=== PATIENT | female | born 1990 | race Caucasian/White ===

== ENCOUNTER 2018-09-20 16:12 | Emergency (ER) | payer OTHER, MEDICAID, SELFPAY ==
--- NOTE | 2018-09-20 16:16 | ED.LOWEXIN ---
HPI - Extremity Injury (Lower) <MARY Chang - Last Filed: 09/20/18 21:56> General Chief Complaint: Extremity Injury, Lower Stated Complaint: right knee pain x1 wk Time Seen by Provider: 09/20/18 16:13 Source: patient Mode of arrival: ambulatory Limitations: no limitations History of Present Illness HPI Narrative: 28-year-old healthy female that is a nonsmoker here for complaint of pain into her right knee. She states that she when out for a walk today and went hiking and got increased pain to her right knee. She states she has had pain to that knee for the past month. She denies any trauma to the knee. She does report increased pain with ambulation. Pain is limited to the right knee. She is able to ambulate. No other concerns or complaints at this time.. Review of Systems <MARY Chang - Last Filed: 09/20/18 21:56> Constitutional Denies chills, Denies fever(s), Denies lethargy and Denies weakness Eyes Denies change in vision, Denies eye discharge, Denies irritation and Denies loss of vision ENT Ears, Nose, Mouth, and Throat: Denies change in voice, Denies neck pain and Denies sore throat Cardiovascular Denies chest pain, Denies irregular heart rhythm, Denies lightheadedness, Denies palpitations, Denies dyspnea, Denies dyspnea on exertion and Denies orthopnea Respiratory Denies cough, Denies dyspnea, Denies dyspnea on exertion and Denies wheezing Gastrointestinal Gastrointestinal: Denies abdominal pain, Denies change in bowel habits, Denies diarrhea, Denies nausea and Denies vomiting Genitourinary Denies hematuria, Denies flank pain, Denies urinary incontinence and Denies urinary urgency Musculoskeletal Denies neck pain Comments: Right knee pain Integumentary/Breasts Denies pruritus, Denies erythema, Denies rash and Denies wounds Neurologic Denies confusion, Denies loss of vision and Denies weakness Psychiatric Denies anxiety, Denies confusion, Denies depression, Denies homicidal ideation and Denies suicidal ideation Endocrine Denies palpitations Hematologic/Lymphatic Denies easy bruising Allergic/Immunologic Denies wheezing Exam <MARY Chang - Last Filed: 09/20/18 21:56> Initial Vital Signs Initial Vital Signs: Vital Signs Temperature 98.0 F 09/20/18 16:17 Pulse Rate 81 09/20/18 16:17 Respiratory Rate 16 09/20/18 16:17 Blood Pressure 115/64 09/20/18 16:17 Pulse Oximetry 100 09/20/18 16:17 Const General: cooperative and well developed Nutritional Appearance: well nourished Orientation: alert, awake, oriented x3 and not confused HENTX Mouth: oral mucosae normal and moist mucous membranes Eyes Conjunctivae: conjunctivae normal Sclera: sclerae normal Pupils: PERRL EOM: EOM intact bilaterally Resp Effort & Inspection: normal respiratory effort, able to speak in complete sentences, no respiratory distress and no use of accessory muscles Auscultation: clear to auscultation bilaterally, no rales, no rhonchi and no wheezes Cardio Rate: regular rate Rhythm: regular rhythm Heart Sounds: no click, no gallops, no murmurs and no rubs Pulses: normal peripheral pulses Skin General: no rashes or lesions noted, No jaundice and No petechiae Neuro General: alert, oriented x3, gait normal and no focal motor deficits Speech: speech normal Extrem Other: Right knee with no swelling no ecchymosis no erythema. Distal sensation is intact. Distal pulses are intact. Distal range of motion is intact. Negative anterior posterior drawer sign. Negative varus valgus stress test. <Sierra Sanchez DO - Last Filed: 09/21/18 18:31> Initial Vital Signs Initial Vital Signs: Vital Signs Temperature 98.0 F 09/20/18 16:17 Pulse Rate 81 09/20/18 16:17 Respiratory Rate 16 09/20/18 16:17 Blood Pressure 115/64 09/20/18 16:17 Pulse Oximetry 100 09/20/18 16:17 Course <MARY Chang - Last Filed: 09/20/18 21:56> Orders Ordered: ED Orders 09/20/18 16:16 XR knee RT 3V Stat Vital Signs - 8 hr 09/20/18 16:17 Temperature 98.0 F Pulse Rate 81 Respiratory Rate 16 Blood Pressure 115/64 Pulse Oximetry 100 <Sierra Sanchez DO - Last Filed: 09/21/18 18:31> Orders Ordered: ED Orders 09/20/18 16:16 XR knee RT 3V Stat Vital Signs - 8 hr 09/20/18 16:17 Temperature 98.0 F Pulse Rate 81 Respiratory Rate 16 Blood Pressure 115/64 Pulse Oximetry 100 [facility] - Extremity Injury (Lower) <MARY Chang - Last Filed: 09/20/18 21:56> Imaging Data Right knee : Radiologist's impression: [address] [address] XRay Report Signed Patient: Fabiana Bello MR#: [id number] : 1990 Acct:[id number] Age/Sex: 28 / F Date of Service: 09/20/18 Loc: ED Accession Number: [id number] Procedure: XR knee RT 3V Ordering Provider: Haroon Dugan PROCEDURE: XR KNEE RT 3V INDICATIONS: right knee pain TECHNIQUE: 3 views of the knee were acquired. COMPARISON: None. FINDINGS: Bones: No fractures or dislocations. No suspicious bony lesions. Soft tissues: No joint effusion. No suspicious soft tissue calcifications. IMPRESSION: No acute right knee fracture or dislocation. Dictated by: Rigoberto Caceres M.D. on 09/20/2018 at 16:38 Approved by: Rigoberto Caceres M.D. on 09/20/2018 at 16:38 [facility] Narrative Medical decision making narrative: X-ray the right knee was obtained was negative for any acute fractures. Signs and symptoms presents as sprain to the right knee. Offered patient knee immobilizer and crutches patient refused. Faex-tae-yagwarg ibuprofen as needed for any discomfort. Rest area. Gentle tsjlo-lp-fzwrkg exercises to help keep the knee loose. Follow up with primary care provider this week for re-evaluation. Due to pain going on for month discussed with primary care provider further evaluation such as MRI. For any worsening symptoms return to the emergency room. Discharge Plan Departure Patient Disposition: Home Clinical Impression: Right knee sprain Discharge Date/Time: 09/20/18 17:10 Interventions: ED Discharge Assessment Last Done: 09/20/18 17:10 Instructions: DI for Knee Pain Activity Restrictions/Additional Instructions: X-ray the right knee was obtained was negative for any acute fractures. Signs and symptoms presents as sprain to the right knee. Iwrm-ets-pdljbya ibuprofen as needed for any discomfort. Rest area. Gentle lappu-pm-lkvmbd exercises to help keep the knee loose. Follow up with primary care provider this week for re-evaluation. Due to pain going on for month discuss with primary care provider further evaluation such as MRI. For any worsening symptoms return to the emergency room. Referrals: [facility] [Provider Group] Provider,Conversion [Non-Staff] - <Sierra Sanchez DO - Last Filed: 09/21/18 18:31> Cosign ED Attending Jeremiahature Attestation: I was immediately available in the department for consultation. This documentation has been reviewed and I agree with assessment and plan. Supervised by Sierra Sanchez DO
[2018-09-20 16:17] VITALS: BP 115/64; PULSE 81; RESP 16; TEMP 36.7; O2SAT 100
== END 2018-09-20 17:10 | disposition home or self-care (01) ==
PROVIDERS: Emergency Provider Nurse Practitioner Family
DX: S83.91XA Sprain of unspecified site of right knee, initial encounter (principal); T73.3XXA Exhaustion due to excessive exertion, initial encounter
CPT/HCPCS: 73562; 99282; 99283